=== PATIENT | female | born 1980 | race Caucasian/White ===

== ENCOUNTER 2018-06-28 19:53 | Emergency (ER) | payer SELFPAY, OTHER ==
[2018-06-28] MEDS: CLINDAMYCIN 150 MG CAP PO (20:52)
[2018-06-28] MEDS: NORCO 5/325MG TABLET (BULK FOR ED) PO (20:52)
== END 2018-06-28 21:09 | disposition home or self-care (01) ==
LOC: M ED 19:53
DX: L05.01 Pilonidal cyst with abscess (principal); R56.9 Unspecified convulsions; Z79.899 Other long term (current) drug therapy; Z88.8 Allergy status to other drugs, medicaments and biological substances; J30.2 Other seasonal allergic rhinitis; F17.210 Nicotine dependence, cigarettes, uncomplicated
CPT/HCPCS: 99283

== ENCOUNTER 2024-04-13 11:10 | Emergency (ER) | payer SELFPAY ==
[~2024-04-13] VITALS: Ht 165.1 cm; Wt 73.6 kg
[~2024-04-13 11:10] MED LIST: ACET-716 PO; BACT800T5 PO; CLEO300C2 PO; GABA-282 PO; HYDR-3715 PO; LITH600C PO; ZOLP5TAB PO; [UNRECOGNIZED DRUG - CODE] PO
[2024-04-13 11:11] VITALS: BP 127/82; TEMP 97.4; O2SAT 98
[2024-04-13] MEDS ORDERED: CEPH500C PO (11:53)
[2024-04-13] MEDS ORDERED: BACI28.417 TOP (11:54)
[2024-04-13] MEDS: BOOSTRIX VACCINE (TETANUS/DIPHTH/ACEL. PERTUSSIS) 0.5ML SYR IM.IMMUN ONE (12:03)
== END 2024-04-13 12:07 | disposition home or self-care (01) ==
LOC: M ED 11:10
DX: T22.212A Burn of second degree of left forearm, initial encounter (principal); L60.0 Ingrowing nail; Z91.09 Other allergy status, other than to drugs and biological substances; Z79.2 Long term (current) use of antibiotics; Z23 Encounter for immunization

== ENCOUNTER 2024-06-08 12:52 | Emergency (ER) | payer SELFPAY ==
[~2024-06-08] VITALS: Ht 165.1 cm; Wt 71.5 kg
[~2024-06-08 12:52] MED LIST changes: +BACI28.417 TOP; +CEPH500C PO
[2024-06-08] MEDS ORDERED: ACET-1349 PO (13:09)
[2024-06-08] MEDS: CYCLOBENZAPRINE 5MG TABLET PO ONE (16:05)
[2024-06-08] MEDS: PERCOCET 5MG/325MG TAB PO ONE (16:06)
[2024-06-08] MEDS ORDERED: HYDR-3713 PO (17:26)
[2024-06-08] MEDS ORDERED: CYCL-707 PO (17:26)
[2024-06-08 17:33] VITALS: BP 115/83; TEMP 98.6; O2SAT 100
== END 2024-06-08 17:39 | disposition home or self-care (01) ==
LOC: M ED 12:52
DX: M50.30 Other cervical disc degeneration, unspecified cervical region (principal); M51.34 Other intervertebral disc degeneration, thoracic region; F41.9 Anxiety disorder, unspecified; F32.A Depression, unspecified; F31.9 Bipolar disorder, unspecified; F17.290 Nicotine dependence, other tobacco product, uncomplicated; Z91.09 Other allergy status, other than to drugs and biological substances; Z79.1 Long term (current) use of non-steroidal anti-inflammatories (NSAID); Z79.899 Other long term (current) drug therapy

== ENCOUNTER 2024-06-30 17:55 | Emergency (ER) | payer SELFPAY ==
[~2024-06-30] VITALS: Ht 165.1 cm; Wt 73.2 kg
[~2024-06-30 17:55] MED LIST changes: +ACET-1349 PO; +CYCL-707 PO; +HYDR-3713 PO
[2024-06-30 23:35] VITALS: TEMP 98.3
[2024-07-01] MEDS: predniSONE 20 MG TAB PO ONE (00:31)
[2024-07-01] MEDS: methocarbamoL 500 MG TAB PO ONE (00:31)
[2024-07-01] MEDS: KETOROLAC 60MG 2ML VIAL IM ONE (00:31)
[2024-07-01] MEDS ORDERED: PRED20TA PO (00:52)
[2024-07-01] MEDS ORDERED: METH-1164 PO (00:52)
[2024-07-01] MEDS ORDERED: IBUP-1022 PO (00:52)
[2024-07-01] MEDS ORDERED: BACT800T5 PO (00:52)
[2024-07-01] MEDS: BACTRIM 160MG/800MG DS TAB PO ONE (01:05)
[2024-07-01 01:18] VITALS: BP 126/77; O2SAT 97
== END 2024-07-01 01:55 | disposition home or self-care (01) ==
LOC: M ED 17:55
DX: M50.30 Other cervical disc degeneration, unspecified cervical region (principal); H60.12 Cellulitis of left external ear; Z91.048 Other nonmedicinal substance allergy status; Z79.2 Long term (current) use of antibiotics; Z79.52 Long term (current) use of systemic steroids; Z79.1 Long term (current) use of non-steroidal anti-inflammatories (NSAID)
CPT/HCPCS: 96374; 99283; J1885; J7512

== ENCOUNTER 2024-08-20 21:34 | Emergency (ER) | payer SELFPAY ==
[~2024-08-20] VITALS: Ht 165.1 cm; Wt 71.6 kg
[~2024-08-20 21:34] MED LIST changes: +IBUP-1022 PO; +METH-1164 PO; +PRED20TA PO
[2024-08-20 21:36] VITALS: BP 124/88; TEMP 97.1; O2SAT 97
== END 2024-08-21 00:15 | disposition left against medical advice (07) ==
LOC: M ED 21:34
DX: Z53.21 Procedure and treatment not carried out due to patient leaving prior to being seen by health care provider (principal)

== ENCOUNTER 2025-03-23 12:20 | Emergency (ER) | payer OTHER ==
[~2025-03-23] VITALS: Ht 165.1 cm; Wt 71.9 kg
[~2025-03-23 12:20] MED LIST changes: +GABA-1172 PO; -GABA-282 PO
[2025-03-23] MEDS: methocarbamoL 500 MG TAB PO ONE (16:00)
[2025-03-23] MEDS: ACETAMINOPHEN 500 MG TAB PO ONE (16:01)
[2025-03-23] MEDS ORDERED: TIZA4CAP PO (17:02)
[2025-03-23] MEDS ORDERED: MEDR4TAB PO (17:02)
[2025-03-23 17:04] VITALS: BP 108/74; TEMP 97.3; O2SAT 99
== END 2025-03-23 17:14 | disposition home or self-care (01) ==
LOC: M ED 12:20
DX: M79.602 Pain in left arm (principal); F31.9 Bipolar disorder, unspecified; F41.9 Anxiety disorder, unspecified; F17.210 Nicotine dependence, cigarettes, uncomplicated; Z86.711 Personal history of pulmonary embolism; Z91.09 Other allergy status, other than to drugs and biological substances; Z79.1 Long term (current) use of non-steroidal anti-inflammatories (NSAID); Z79.52 Long term (current) use of systemic steroids; Z79.899 Other long term (current) drug therapy

== ENCOUNTER → 2025-09-07 | Outpatient (CLI) | payer OTHER ==
[~2025-09-07] MED LIST changes: -IBUP-1022 PO; +IBUP600T42 PO; +MEDR4TAB PO; +TIZA4CAP PO; -ZOLP5TAB PO; +ZOLP5TAB9 PO
== END ==
LOC: M SOG 07:20
PROVIDERS: ATTEND Physician Assistant
DX: M79.645 Pain in left finger(s) (principal)